=== PATIENT | female | born 1980 | race Caucasian/White ===

== ENCOUNTER 2017-10-09 09:11 | Day surgery (SDC) | payer OTHER ==
[2017-10-03 15:24] VITALS: BMI 28.3
[2017-10-09] MEDS ORDERED: MIDAZOLAM HCL 2 MG/2 ML SINGLE DOSE VIAL ONE (10:41)
[2017-10-09] MEDS ORDERED: PROPOFOL 20 ML ONE (10:41)
[2017-10-09] MEDS ORDERED: ROCURONIUM BROMIDE 50 MG/5 ML VIAL ONE (10:41)
[2017-10-09] MEDS ORDERED: LIDOCAINE HCL/PF 2% SDV 5ML VIAL ONE (10:42)
[2017-10-09] MEDS ORDERED: ONDANSETRON 4 MG/2 ML VIAL IVPUSH PRN (10:52)
[2017-10-09] MEDS ORDERED: PROMETHAZINE HCL 25 MG/1 ML VIAL IVPUSH PRN (10:52)
[2017-10-09] MEDS ORDERED: BUPIVACAINE HCL/PF 2.5 MG/ML - 30 ML VIAL IJ ONE (10:54)
[2017-10-09] MEDS ORDERED: LACTATED RINGERS SOLUTION 1,000 ML IV SCH (11:00)
[2017-10-09] MEDS ORDERED: ceFAZolin SODIUM 1 GM VIAL ONE (11:17)
[2017-10-09] MEDS ORDERED: SODIUM CHLORIDE 0.9% P/F 10 ML VIAL IJ ONE (11:17)
[2017-10-09] MEDS ORDERED: ONDANSETRON 4 MG/2 ML VIAL ONE ×2 (11:19→12:46)
[2017-10-09] MEDS ORDERED: DEXAMETHASONE SOD PHOSPHATE 4 MG/1 ML VIAL ONE (11:19)
[2017-10-09] MEDS ORDERED: GLYCOPYRROLATE 0.2 MG/1 ML VIAL ONE (11:52)
[2017-10-09] MEDS ORDERED: KETOROLAC TROMETHAMINE 30 MG/1 ML VIAL ONE (11:57)
--- NOTE | 2017-10-09 12:19 | OP ---
Operative Note - Note: Operative Date: 10/09/17 Pre-Operative Diagnosis: cholelithiasis Operation: laparoscopic cholecystectomy Post-Operative Diagnosis: Same as Pre-op Surgeon: Neo Burch [place] Worker: Kimberly Cain Anesthesia: General Specimens Removed: gallbladder Estimated Blood Loss (mls): 10 Operative Report Dictated: Yes
[2017-10-09 18:09] VITALS: TEMP 98.8
[2017-10-09 18:16] VITALS: BP 114/70; PULSE 74
--- NOTE | 2017-10-10 00:09 | OP ---
DATE OF OPERATION: 10/09/2017 PREOPERATIVE DIAGNOSIS: Cholecystitis, cholelithiasis. POSTOPERATIVE DIAGNOSIS: Cholecystitis, cholelithiasis. PROCEDURE: Laparoscopic cholecystectomy. SURGEON: Neo Burch M.D. [employer]: Bernardino Ochoa ANESTHESIA: General endotracheal intubation. DESCRIPTION OF PROCEDURE: Patient has had multiple episodes of abdominal pain radiating to the back and examination revealed cholecystitis and cholelithiasis. So the patient was brought to the operating room. Intravenous antibiotic was given. Midline abdomen was prepped and draped. A small incision was made in the umbilicus with the open technique, and using the Brown cannula, pneumoperitoneum was obtained, and using under direct vision the 5-mm ports were placed. One in the midline and two in the right lateral border, and under direct vision there were a lot of adhesions from the omentum to the gallbladder, which were taken down, and the gallbladder was grasped at the neck and at the fundus, and the cystic duct and artery were clearly identified and clipped, and gallbladder was then removed from the liver bed without any complications, and it was put into the bag and excised through the abdominal midline, and the fascia was closed with number 1 Vicryl, and the Marcaine was injected, and the patient was taken to recovery in stable condition. NEO BURCH M.D. [id number]
== END 2017-10-09 17:55 | disposition home or self-care (01) ==
LOC: FASU 09:11
PROVIDERS: ATTEND Surgery Vascular Surgery
PROC: 0FT44ZZ Resection of Gallbladder, Percutaneous Endoscopic Approach (ICD-10-PCS; principal; 2017-10-09 11:24)
DX: K80.40 Calculus of bile duct with cholecystitis, unspecified, without obstruction (principal)
CPT/HCPCS: 84703